=== PATIENT | female | born 2000 | race Asian ===

== ENCOUNTER 2022-02-18 01:38 | Emergency (ER) | payer BC, MEDICAID ==
[~2022-02-18] VITALS: Ht 157.5 cm; Wt 63.6 kg
[2022-02-18 01:42] VITALS: BP 154/110
== END 2022-02-18 02:43 | disposition left against medical advice (07) ==
LOC: EMS 01:41
DX: Z53.21 Procedure and treatment not carried out due to patient leaving prior to being seen by health care provider (principal)